=== PATIENT | female | born 2000 | race African-American/Black ===

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

== ENCOUNTER 2021-08-16 08:28 | Outpatient (CLI) | payer OTHER ==
[2021-08-16 17:51] LABS: Hep B Core Total Ab Non-Reactive (NonReactive); Hep B Core Total Index 0.11 S/CO (0-0.79); Hep B Surf Ag Non-Reactive S/CO (NonReactive)
[2021-08-16 18:22] LABS: HBSAB Concentration 342.85 mIU/mL; Hep B Surf AB Reactive (NonReactive)
== END 2021-08-16 08:29 | disposition home or self-care (01) ==
LOC: MADLAB 08:28
PROVIDERS: ATTEND Family Medicine
DX: Z23 Encounter for immunization (principal)
CPT/HCPCS: 36415; 86704; 86706; 87340